=== PATIENT | male | born 2000 | race Caucasian/White ===

== ENCOUNTER 2021-05-27 16:18 | Emergency (ER) | payer BC ==
[~2021-05-27] VITALS: Ht 185.4 cm; Wt 122.7 kg
[2021-05-27 16:40] VITALS: BP 128/75
--- NOTE | 2021-05-27 18:40 | RAD ---
Exam: Right knee 4 views INDICATION: Knee pain TECHNIQUE: Frontal, lateral, oblique and sunrise views of the right knee Comparisons: None FINDINGS: Bone mineralization is normal. No acute or healed fractures. Soft tissues are unremarkable. Joint spa britton are well-maintained. IMPRESSION: No acute osseous abnormality. Electronically signed by: Matt Hurst MD (05/27/2021 6:38 PM) [facility]
--- NOTE | 2021-05-27 19:00 | PHYS DOC ---
Past Medical History Additional Past Medical Histor: MRSA, CONCUSSION Past Surgical History: Other Additional Past Surgical Histo: 4 EAR SURGERY, HERNIA REPAIR, STAGE 3 LACERATIO N TO SPLEEN General Adult EDM: Chief Complaint: KNEE INJURY HPI: HPI: Patient is a 20-year-old male that presents today with right knee pain. Patient states he was lifting something heavy and he when he stood up with that object he said he felt a pop and instant pain in his right knee. Patient states that he has a past medical history of cartilage injury in that knee along with ligamental injuries. He states he is unable to bear weight on that leg and has difficulty moving it as well due to pain. Review of Systems: Review of Systems: Constitutional: Denies fever or chills. [] Eyes: Denies change in visual acuity. [] HENT: Denies nasal congestion or sore throat. [] Respiratory: Denies cough or shortness of breath. [] Cardiovascular: Denies chest pain or edema. [] GI: Denies abdominal pain, nausea, vomiting, bloody stools or diarrhea. [] : Denies dysuria. [] Musculoskeletal: Right knee pain Integument: Denies rash. [] Neurologic: Denies headache, focal weakness or sensory changes. [] Endocrine: Denies polyuria or polydipsia. [] Lymphatic: Denies swollen glands. [] Psychiatric: Denies depression or anxiety. [] Heart Score: C/O Chest Pain: No Risk Factors: Risk Factors: DM, Current or recent (<one month) smoker, HTN, HLP, family history of CAD, obesity. Risk Scores: Score 0 - 3: 2.5% MACE over next 6 weeks - Discharge Home Score 4 - 6: 20.3% MACE over next 6 weeks - Admit for Clinical Observation Score 7 - 10: 72.7% MACE over next 6 weeks - Early Invasive Strategies Allergies: Allergies: Allergies Coded Allergies Type Severity Reaction Last Updated Verified Penicillins Allergy Intermediate 05/27/21 Yes aspirin Allergy Intermediate 05/27/21 Yes Physical Exam: PE: Constitutional: Well developed, well nourished, no acute distress, non-toxic appearance. [] HENT: Normocephalic, atraumatic, bilateral external ears normal, oropharynx moist, no oral exudates, nose normal. [] Eyes: PERRLA, EOMI, conjunctiva normal, no discharge. [] Neck: Normal range of motion, no tenderness, supple, no stridor. [] Cardiovascular:Heart rate regular rhythm, no murmur [] Lungs & Thorax: Bilateral breath sounds clear to auscultation [] Abdomen: Bowel sounds normal, soft, no tenderness, no masses, no pulsatile masses. [] Skin: Warm, dry, no erythema, no rash. [] Back: No tenderness, no CVA tenderness. [] Extremities: No tenderness, no cyanosis, no clubbing, ROM intact, no edema. [] Neurologic: Alert and oriented X 3, normal motor function, normal sensory function, no focal deficits noted. [] Psychologic: Affect normal, judgement normal, mood normal. [] Current Patient Data: Vital Signs: Vital Signs Date Time Temp Pulse Resp B/P (MAP) Pulse Ox O2 Delivery O2 Flow Rate FiO2 05/27/21 16:40 99.0 122 18 128/75 (92) 97 Room Air 99.0 EKG: EKG: [] Radiology/Procedures: Radiology/Procedures: [REASON: knee pain PROCEDURE: KNEE RIGHT 4V Exam: Right knee 4 views INDICATION: Knee pain TECHNIQUE: Frontal, lateral, oblique and sunrise views of the right knee Comparisons: None FINDINGS: Bone mineralization is normal. No acute or healed fractures. Soft tissues are unremarkable. Joint spaces are well-maintained. IMPRESSION: No acute osseous abnormality. Electronically signed by: Matt Hurst MD (05/27/2021 6:38 PM) [facility]] Course & Med Decision Making: Course & Med Decision Making Pertinent Labs and Imaging studies reviewed. (See chart for details) 1855 reviewed radiological results with patient, informed him there was no acute findings on the x-ray but that would not include any injuries to the ligaments or cartilage in the knee. I did advise patient to follow-up with orthopedic doctor for further evaluation of this knee pain, will place patient in a knee immobilizer and a set of crutches, I advised patient to ice 20 minutes on 4-5 times daily take [id number] ibuprofen as needed and bear weight on his right leg as tolerated. Patient verbalized understanding of this and agreeable with plan of care. Miguel Disclaimer: Miguel Disclaimer: This electronic medical record was generated, in whole or in part, using a voice recognition dictation system. Departure Departure Impression: Primary Impression: Knee pain, right Qualified Codes: M25.561 - Pain in right knee Disposition: 01 HOME / SELF CARE / HOMELESS Condition: STABLE Referrals: JEMAL HERNANDEZ MD Patient Instructions: Crutch Use, Knee Immobilization, Knee Pain Additional Instructions: Wear knee immobilizer as tolerated Weight-bear as tolerated to the right leg Ice 20 minutes on 4-5 times daily to help with swelling or localized pain relief [id number] ibuprofen or Tylenol as labeled directed for pain Follow-up with your primary care physician, Dr. Rodriguez who is orthopedic doctor on-call or one of the listed clinics below for further management of your knee pain issues. [facility] [address] [place] [address] [facility] [address] [place] [address] [facility] [address] [facility] [place] [address] [facility] [address] [place] [address] [facility] [address] [place] [address] [facility] [address] [place] [address] [facility] [address] [place] [address] [facility] [address] [place] [address] [facility] [address] [place] [address] [facility] [address] [place] [address] SHIN GREENE AUDIT MGR May 27, 2021 19:00
== END 2021-05-27 19:50 | disposition home or self-care (01) ==
LOC: ER 16:18
DX: M25.561 Pain in right knee (principal); Z88.0 Allergy status to penicillin; Z88.6 Allergy status to analgesic agent
CPT/HCPCS: 29505; 73564; 99283

== ENCOUNTER → 2021-06-12 | Outpatient (CLI) | payer BC ==
[2021-05-27 16:40] VITALS: BP 128/75
[~2021-06-12] MED LIST: ACET325T9 PO; IBUP-1027 PO; TRAM50TA PO
== END ==
LOC: LAB 09:52
PROVIDERS: ATTEND Orthopaedic Surgery
DX: Z01.812 Encounter for preprocedural laboratory examination (principal); Z20.822 Contact with and (suspected) exposure to COVID-19
CPT/HCPCS: U0003

== ENCOUNTER 2021-06-14 08:15 | Day surgery (SDC) | payer BC ==
[~2021-06-14] VITALS: Ht 185.4 cm; Wt 122.7 kg
[~2021-06-14 08:15] MED LIST changes: +CLINDAMYCIN 900MG PREMIX 50 ML IV PRN; +HYDROmorphone 2 MG/ML INJ. IVP PRN; +IV RINGERS,LACTATED 1000ML 1,000 ML IV SCH; +MORPHINE SULFATE 2 MG/ML INJ. IVP PRN; +PROCHLORPERAZINE 10 MG/2 ML VIAL. IVP PRN; -TRAM50TA PO; +fentaNYL PF VIAL 100 MCG/2 ML VIAL IVP PRN
[2021-06-14 08:39] VITALS: BP 118/77
[2021-06-14] MEDS ORDERED: fentaNYL PF VIAL 100 MCG/2 ML VIAL ONE (08:57)
[2021-06-14] MEDS ORDERED: MIDAZOLAM HCL/PF 2 MG/2 ML VIAL. ONE (08:57)
[2021-06-14] MEDS ORDERED: LIDOCAINE 2% PF 5 ML VIAL. ONE (08:59)
[2021-06-14] MEDS ORDERED: PROPOFOL 10 MG/ML (20ML) VIAL. IV ONE ×2 (08:59)
[2021-06-14] MEDS ORDERED: DEXAMETHASONE SOD PHOS 4 MG/ML VIAL ONE (09:01)
[2021-06-14] MEDS ORDERED: ONDANSETRON PF 4 MG/2 ML VIAL. ONE (09:01)
[2021-06-14] MEDS ORDERED: SEVOFLURANE 31 TO 60 MINUTES. IH ONE (09:01)
[2021-06-14] MEDS ORDERED: TRAM50TA PO (09:37)
[2021-06-14] MEDS ORDERED: BUPIVACAINE-EPI 0.25%-1:200000 MPF 30 ML VIAL. ONE (09:43)
[2021-06-14] MEDS ORDERED: HYDROmorphone 2 MG/ML INJ. ONE (10:16)
[2021-06-14] MEDS ORDERED: KETOROLAC 30 MG/ML VIAL. ONE (10:16)
--- NOTE | 2021-06-14 10:49 | PDOC4 ---
OPERATIVE NOTE Date: Date: Jun 14, 2021 Pre-Op Diagnosis: Bucket-handle tear right medial meniscus Post-Op Diagnosis: Same Procedure Performed: Right knee arthroscopy with medial meniscus repair Surgeon: Jose Juan Anesthesia Type: General Blood Loss: 20 cc Specimans Obtained: None Complications: Patient tolerated the procedure well without any apparent complications. Operative Note: See dictation ELIZABETH MONTOYA Jr. DO Jun 14, 2021 10:49
--- NOTE | 2021-06-14 10:52 | DISCH ---
DISCHARGE INSTRUCTIONS Condition on Discharge Condition on Discharge: Stable Activity After Discharge Activity Instructions for Disc: Avoid exertion Driving Instructions after Dis: No driving for 2 weeks Weight Bearing Status after Di: Non weight bearing Wound Incision Care Wound/Incision Care: Ice to area for comfort, Keep wound elevated, Change dressing Other wound/incision instructi: May change dressings postoperative day #3 Follow-Up Follow up with: 10 to 14 days ELIZABETH MONTOYA Jr. DO Jun 14, 2021 10:52
--- NOTE | 2021-06-14 11:14 | OP ---
DATE OF SURGERY: 06/14/2021 PREOPERATIVE DIAGNOSES: Medial meniscal tear, right knee. POSTOPERATIVE DIAGNOSES: Medial meniscal tear, right knee. PROCEDURE: Right knee arthroscopy with medial meniscal repair. SURGEON: Anthony Manzano Jr, DO. DEICER INSPECTOR PNEUMATIC: Ted Rivera. ANESTHESIA: General. COMPLICATIONS: None. ESTIMATED BLOOD LOSS: 20 mL. DESCRIPTION OF PROCEDURE: The patient was taken to the operative suite, given general anesthetic. Right lower extremity was placed in a knee catherine, prepped and draped in a sterile fashion. Inferomedial and inferolateral portals were established. Knee was insufflated with saline. Visualization of the patellofemoral joint, noted this to be completely intact. The lateral compartment was also completely intact without any problems. Probing revealed this to be very stable on the meniscus as well as chondral surfaces. The ACL and the PCL were also intact. However, there was noted to be an extremely large tear of a bucket handle nature with the larger portion within the intercondylar region. After prepping the remainder of the peripheral aspect of the meniscus and capsular region. There was good bleeding noted at that point. Therefore, using the [employer] meniscal repair kits and sutures, all suture repair was used with 3 separate sutures. Those had a very good purchase and were instituted in a horizontal nature. This had excellent fixation with probing after this. This was completely reduced back to the capsule. This was then thoroughly irrigated. The chondral surfaces were noted to be intact. No other lesions or problems were noted. After instruments were removed, the wounds were reapproximated in an interrupted fashion using 3-0 nylon. Sterile dressing was applied. The patient was then taken from the operative bed to the postoperative bed, taken to the PACU in stable condition. YOANDY CORREA: Freya TID: [id number]
[2021-06-14] MEDS ORDERED: traMADol 50 MG TABLET PO ONE (11:15)
[2021-06-14 11:40] VITALS: BP 118/64
== END 2021-06-14 11:50 | disposition home or self-care (01) ==
LOC: SURG 08:15
PROVIDERS: ATTEND Orthopaedic Surgery
DX: S83.211A Bucket-handle tear of medial meniscus, current injury, right knee, initial encounter (principal); F41.9 Anxiety disorder, unspecified; Z79.899 Other long term (current) drug therapy; Z98.890 Other specified postprocedural states; Z88.0 Allergy status to penicillin; Z88.8 Allergy status to other drugs, medicaments and biological substances; X58.XXXA Exposure to other specified factors, initial encounter; Y93.89 Activity, other specified; Y92.89 Other specified places as the place of occurrence of the external cause; Y99.8 Other external cause status
CPT/HCPCS: 29881; A4930; C1713; J1100; J1170; J1885; J2250; J2405; J2704; J3010; J3490